=== PATIENT | female | born 1955 | race Two or more races ===

== ENCOUNTER 2024-06-11 13:19 | Inpatient (IN) | payer MEDICARE, OTHER ==
[~2024-06-11] VITALS: Ht 154.9 cm; Wt 70.3 kg
[2024-06-11 14:38] LABS: APPEARANCE,URINE CLEAR (CLEAR); BILIRUBIN,URINE NEGATIVE (NEGATIVE); BLOOD, URINE NEGATIVE Ery/uL (NEGATIVE); COLOR,URINE YELLOW (YELLOW); KETONES,URINE NEGATIVE (NEGATIVE); LEUKOCYTE ESTERASE ,URINE TRACE (NEGATIVE); NITRITE, URINE NEGATIVE (NEGATIVE); PROTEIN,URINE 2+ mg/dl (NEGATIVE); UGLUCOSE NEGATIVE (NEGATIVE); UROBILINOGEN,URINE 0.2 EU/dL (0.2)
[2024-06-11] MEDS ORDERED: MAGN400O6 PO (14:50)
[2024-06-11] MEDS ORDERED: ASPI-1169 PO (14:50)
[2024-06-11] MEDS ORDERED: NA P133E RC (14:50)
[2024-06-11] MEDS ORDERED: QUET25TA PO (14:50)
[2024-06-11] MEDS ORDERED: VALB40CA2 PO (14:50)
[2024-06-11] MEDS ORDERED: ACET-868 PO (14:50)
[2024-06-11] MEDS ORDERED: SERT100T12 PO (14:50)
[2024-06-11] MEDS ORDERED: BISA10SU11 RC (14:50)
[2024-06-11] MEDS ORDERED: OXYB5TAB16 PO (14:50)
[2024-06-11] MEDS ORDERED: CLON0.1T PO (14:50)
[2024-06-11] MEDS ORDERED: MULT-213 PO (14:50)
[2024-06-11] MEDS ORDERED: DIVA125C5 PO (14:50)
[2024-06-11] MEDS ORDERED: MELA3TAB41 PO (14:50)
[2024-06-11] MEDS ORDERED: RISP2TAB5 PO (14:50)
[2024-06-11] MEDS ORDERED: POLY17PO4 PO (14:50)
[2024-06-11] MEDS ORDERED: AMLO10TA4 PO (14:50)
[2024-06-11 14:55] LABS: ALANINE AMINOTRANSFERASE 13 U/L (12-78); ALBUMIN 3.1 g/dL (3.4-5.0); ALKALINE PHOSPHATASE 121 U/L (46-116); ASPARTATE AMINOTRANSFERASE 13 U/L (15-37); BILIRUBIN,DIRECT 0.1 mg/dL (0.0-0.2); BILIRUBIN,TOTAL 0.3 mg/dL (0.2-1.0); CALCIUM, SERUM 8.3 mg/dL (8.5-10.1); CARBON DIOXIDE 30 mmol/L (21-32); CHLORIDE 100 mmol/L (98-107); CREATININE 2.3 mg/dL (0.6-1.3); GLUCOSE 74 mg/dL (74-106); LIPASE 59 U/L (16-77); POTASSIUM 4.9 mmol/L (3.5-5.1); SODIUM SERUM 136 mmol/L (136-145); TOTAL PROTEIN, SERUM 6.7 g/dL (6.4-8.2); UREA NITROGEN, BLOOD 53 mg/dL (7-18)
[2024-06-11 14:59] LABS: BASOPHILS # (AUTO) 0.1 K/uL (0.0-0.2); BASOPHILS % (AUTO) 1.2 % (0.0-2.0); EOSINOPHILS # (AUTO) 0.2 K/uL (0.0-0.7); EOSINOPHILS % (AUTO) 3.6 % (0.0-6.0); HEMATOCRIT 31 % (33-45); HEMOGLOBIN 10.8 g/dL (11.5-14.8); LYMPHOCYTES # (AUTO) 1.3 K/uL (0.8-4.8); LYMPHOCYTES % (AUTO) 26.4 % (20.0-44.0); MEAN CORPUSCULAR HEMOGLOBIN 32 PG (26.0-33.0); MEAN CORPUSCULAR HGB CONC 35 g/dl (31.0-36.0); MEAN CORPUSCULAR VOLUME 91 fL (82-100); MONOCYTES # (AUTO) 0.4 K/uL (0.1-1.30); MONOCYTES % (AUTO) 8.6 % (2.0-12.0); NEUTROPHILS # (AUTO) 2.9 K/uL (1.8-8.9); NEUTROPHILS % (AUTO) 60.2 % (43.0-81.0); PLATELET COUNT (AUTO) 197 K/uL (150-450); RED BLOOD CELL COUNT(AUTO) 3.38 MIL/uL (4.0-5.2); RED CELL DISTRIBUTION WIDTH 12.8 % (11.5-15.0); WHITE BLOOD COUNT (AUTO) 4.9 K/uL (4.3-11.0)
[2024-06-11 15:26] LABS: ADD URINE CULTURE NO; BACTERIA,URINE Few /HPF (None Seen); MUCUS,URINE Few /LPF (None Seen); RBC,URINE 0-2 /HPF (0-2); SQUAMOUS EPITHELIAL CELL,UR Few /HPF (None Seen)
[2024-06-11 16:00] VITALS: BP 169/88; TEMP 97.3; O2SAT 100
[2024-06-11] MEDS ORDERED: Z GUARD REMEDY 4 OZ OINT TP PRN (16:00)
[2024-06-11] MEDS ORDERED: CLONIDINE HCL 0.1 MG TABLET PO PRN (16:00)
[2024-06-11] MEDS ORDERED: MAG HYDROX/AL HYDROX/SIMETH 30 ML UDC PO PRN (16:00)
[2024-06-11] MEDS ORDERED: HYDROCODONE/APAP 5/325MG TABLET PO PRN (16:00)
[2024-06-11] MEDS ORDERED: INGREZZA 40 MG XX SCH (16:00)
[2024-06-11] MEDS ORDERED: MAGNESIUM HYDROXIDE 30 ML UDC PO PRN (16:00)
[2024-06-11] MEDS ORDERED: ONDANSETRON HCL/PF 4 MG/2 ML VIAL IVP PRN (16:00)
[2024-06-11] MEDS ORDERED: BISACODYL SUPP (10 MG) 10 MG/SUPP.RECT SUPP.RECT RC PRN (16:00)
[2024-06-11] MEDS ORDERED: NA PHOS,M-B/NA PHOS,DI-BA 1 EA ENEMA RC PRN (16:00)
[2024-06-11] MEDS ORDERED: ASPIRIN EC 325 MG TABLET.DR PO ONE (16:12)
[2024-06-11] MEDS: ASPIRIN EC 325 MG TABLET.DR PO ONE (16:19)
[2024-06-11] MEDS: IV NS 0.9% 500 ML BAG IV ONE (16:19)
[2024-06-11] MEDS: DIVALPROEX SODIUM 125 MG CAP.SPRINK PO SCH (17:35)
[2024-06-11] MEDS: risperiDONE 1 MG TABLET PO SCH (17:35)
[2024-06-11 17:50] VITALS: BP 169/88; TEMP 97.3; O2SAT 100
[2024-06-11 20:00] VITALS: BP 118/65; TEMP 98.4; O2SAT 98
[2024-06-11] MEDS: SERTRALINE HCL 50 MG TABLET PO SCH (21:30)
[2024-06-11] MEDS: OXYBUTYNIN CHLORIDE 5 MG TABLET PO SCH (21:30)
[2024-06-11] MEDS: IV NS 0.9% 1,000 ML IV PRN (23:53)
[2024-06-12] VITALS: BP_SYST 110; BP_SYST 116; BP_SYST 128; BP_SYST 156; BP_DIAS 65; BP_DIAS 67; BP_DIAS 70; BP_DIAS 87; TEMP 98.4; TEMP 98.6; O2SAT 97; O2SAT 98
[2024-06-12 04:00] VITALS: BP_SYST 145; BP_SYST 147; BP_SYST 155; BP_SYST 156; BP_DIAS 68; BP_DIAS 71; BP_DIAS 76; BP_DIAS 77; TEMP 97.7; TEMP 97.9; O2SAT 96; O2SAT 99
[2024-06-12 06:18] LABS: BASOPHILS # (AUTO) 0.1 K/uL (0.0-0.2); BASOPHILS % (AUTO) 1.3 % (0.0-2.0); EOSINOPHILS # (AUTO) 0.2 K/uL (0.0-0.7); EOSINOPHILS % (AUTO) 4.4 % (0.0-6.0); HEMATOCRIT 29 % (33-45); LYMPHOCYTES # (AUTO) 1.6 K/uL (0.8-4.8); LYMPHOCYTES % (AUTO) 33.6 % (20.0-44.0); MEAN CORPUSCULAR HEMOGLOBIN 31 PG (26.0-33.0); MEAN CORPUSCULAR HGB CONC 35 g/dl (31.0-36.0); MEAN CORPUSCULAR VOLUME 91 fL (82-100); MONOCYTES # (AUTO) 0.5 K/uL (0.1-1.30); MONOCYTES % (AUTO) 10.2 % (2.0-12.0); NEUTROPHILS # (AUTO) 2.4 K/uL (1.8-8.9); NEUTROPHILS % (AUTO) 50.5 % (43.0-81.0); PLATELET COUNT (AUTO) 168 K/uL (150-450); RED BLOOD CELL COUNT(AUTO) 3.19 MIL/uL (4.0-5.2); RED CELL DISTRIBUTION WIDTH 12.6 % (11.5-15.0); WHITE BLOOD COUNT (AUTO) 4.7 K/uL (4.3-11.0)
[2024-06-12 06:40] LABS: CALCIUM, SERUM 8.3 mg/dL (8.5-10.1); MAGNESIUM 2.1 mg/dL (1.8-2.4); PHOSPHORUS 5.4 mg/dL (2.5-4.9); POTASSIUM 5.1 mmol/L (3.5-5.1)
[2024-06-12] MEDS: PANTOPRAZOLE 40 MG TABLET.DR PO SCH (07:55)
[2024-06-12 08:00] VITALS: BP 158/66; TEMP 97.7; O2SAT 97
[2024-06-12] MEDS: QUETIAPINE FUMARATE 25 MG TABLET PO SCH (09:15)
[2024-06-12] MEDS: ASPIRIN 81 MG TAB.CHEW PO SCH (09:15)
[2024-06-12] MEDS: MULTIVITAMINS,THERAGRAN 1 UDTAB TABLET PO SCH (09:15)
[2024-06-12] MEDS: AMLODIPINE BESYLATE 10 MG TABLET PO SCH (09:16)
[2024-06-12 09:57] LABS: FERRITIN 93 ng/mL (8-388)
[2024-06-12 10:21] LABS: IRON, SERUM 91 ug/dl (50-175); TOTAL IRON BINDING CAPACITY 230 ug/dl (250-450)
[2024-06-12 16:00] VITALS: BP 135/55; TEMP 98.4; O2SAT 95
[2024-06-12 20:00] VITALS: BP 128/62; TEMP 97.9; O2SAT 98
[2024-06-13] VITALS: BP 131/70; TEMP 97.7; O2SAT 100
[2024-06-13 04:00] VITALS: BP 150/68; TEMP 97.8; O2SAT 100
[2024-06-13 08:00] VITALS: BP 172/79; TEMP 97.9; O2SAT 99
[2024-06-13 08:19] LABS: CALCIUM, SERUM 8.1 mg/dL (8.5-10.1); CREATININE 1.9 mg/dL (0.6-1.3); POTASSIUM 4.9 mmol/L (3.5-5.1)
[2024-06-13 11:37] LABS: THYROID STIMULATING HORMONE 4.08 uIU/mL (0.358-3.74)
[2024-06-13 16:00] VITALS: BP 135/78; TEMP 98.2; O2SAT 99
[2024-06-13] MEDS: MAGNESIUM HYDROXIDE 30 ML UDC PO PRN (17:09)
[2024-06-13 20:00] VITALS: BP 127/64; TEMP 97.9; O2SAT 98
[2024-06-14 04:00] VITALS: BP 143/66; TEMP 97.7; O2SAT 97
[2024-06-14 06:53] LABS: CALCIUM, SERUM 8.6 mg/dL (8.5-10.1); CREATININE 1.8 mg/dL (0.6-1.3); POTASSIUM 4.4 mmol/L (3.5-5.1)
[2024-06-14] MEDS: POLYETHYLENE GLYCOL 3350 17 GM POWD.PACK PO PRN (07:32)
[2024-06-14 08:00] VITALS: BP 140/72; TEMP 97.9; O2SAT 98
[2024-06-14 08:08] VITALS: BP 140/79
[2024-06-14 15:02] VITALS: TEMP 97.9
[2024-06-14] MEDS: ACETAMINOPHEN 325 MG TABLET PO PRN (15:02)
== END 2024-06-14 15:00 | DRG 640 ==
LOC: ER 13:26 → MED 16:08 → TELE 06-12 00:49
PROVIDERS: ADMIT Nurse Practitioner Acute Care; ATTEND Nurse Practitioner Acute Care
DX: E86.0 Dehydration (principal); I21.A1 Myocardial infarction type 2; N17.0 Acute kidney failure with tubular necrosis; I13.0 Hypertensive heart and chronic kidney disease with heart failure and stage 1 through stage 4 chronic kidney disease, or unspecified chronic kidney disease; D68.59 Other primary thrombophilia; Z20.822 Contact with and (suspected) exposure to COVID-19; E11.22 Type 2 diabetes mellitus with diabetic chronic kidney disease; I50.9 Heart failure, unspecified; N18.9 Chronic kidney disease, unspecified; Z79.82 Long term (current) use of aspirin; Z79.899 Other long term (current) drug therapy; F31.9 Bipolar disorder, unspecified; Z74.09 Other reduced mobility; E78.5 Hyperlipidemia, unspecified; E66.9 Obesity, unspecified; Z68.29 Body mass index [BMI] 29.0-29.9, adult; M19.90 Unspecified osteoarthritis, unspecified site; N20.0 Calculus of kidney; F41.9 Anxiety disorder, unspecified; E86.9 Volume depletion, unspecified; N28.1 Cyst of kidney, acquired
CPT/HCPCS: 36415; 70450-TC; 71045-TC; 76770-TC; 80048-TC; 80061-TC; 80076-TC; 81001; 82607-TC; 82728-TC; 82962-TC; 83540-TC; 83690-TC; 83735-TC; 83921; 84100-TC; 84425; 84443-TC; 84484-TC; 85025-TC; 93307-TC; 97116-TC; 97530-TC; A4223; G0378; J7030; J7040